=== PATIENT | male | born 1965 | race Caucasian/White ===

== ENCOUNTER 2018-01-31 02:13 | Emergency (ER) | payer OTHER ==
[~2018-01-31] VITALS: Ht 182.9 cm; Wt 79.4 kg
[2018-01-31 02:40] LABS: ABSOLUTE BASOPHILS 0.1 thou/uL (0.0-0.2); ABSOLUTE EOSINOPHILS 0.1 thou/uL (0.0-0.7); ABSOLUTE LYMPHOCYTES 2.4 thou/uL (0.8-5.3); ABSOLUTE MONOCYTES 1.5 thou/uL (0.0-1.2); ABSOLUTE NEUTROPHILS 5.3 thou/uL (1.6-8.1); BASOPHILS 0.7 %; EOSINOPHILS 1.4 %; HEMATOCRIT 50.3 % (42.0-52.0); LYMPHOCYTES 25.5 %; MCH 30.6 pg (26.0-34.0); MCHC 33.8 g/dL (28.0-37.0); MCV 90.5 fL (80.0-100.0); MPV 8.8 fl. (7.2-11.1); NUCLEATED RBCS 0 /100WBC; PLATELET COUNT* 313 thou/uL (150-400); POLYS 56.4 %; RBC 5.55 mil/uL (4.50-6.00); RDW-CV 13.4 % (10.5-14.5); WBC 9.4 thou/uL (4.0-11.0)
[2018-01-31 02:53] LABS: ANION GAP 7 mmol/L (7-16); BUN 20 mg/dL (7-18); CALCIUM 8.9 mg/dL (8.5-10.1); CHLORIDE 103 mmol/L (98-107); CO2 30 mmol/L (21-32); CREATININE 1.6 mg/dL (0.6-1.3); GLUCOSE 143 mg/dL (70-99); SODIUM 140 mmol/L (136-145)
[2018-01-31 03:00] LABS: ALKALINE PHOSPHATASE 98 U/L (46-116); LIPASE 128 U/L (73-393); SGOT 23 U/L (15-37); SGPT 43 U/L (30-65); TOTAL BILIRUBIN 0.5 mg/dL (<0.1-1.0); TOTAL PROTEIN 7.7 g/dL (6.4-8.2); TROPONIN-I LEVEL <0.06 ng/mL (<0.06)
[2018-01-31] MEDS ORDERED: ZOFRAN ODT4 MG PO (04:24)
[2018-01-31] MEDS ORDERED: NORCO 5-325 TA1 EACH PO (04:24)
[2018-01-31] MEDS ORDERED: FLOMAX0.4 MG PO (04:24)
[2018-01-31] MEDS ORDERED: IBUPROFEN 800800 M1 PO (04:24)
[2018-01-31 04:48] LABS: URINE BILIRUBIN NEGATIVE (Negative); URINE BLOOD 3+ (Negative); URINE CLARITY CLEAR; URINE COLOR YELLOW; URINE GLUCOSE-RANDOM NEGATIVE (Negative); URINE KETONES NEGATIVE (Negative); URINE LEUKOCYTES-REFLEX NEGATIVE (Negative); URINE NITRITE-REFLEX NEGATIVE (Negative); URINE PROTEIN NEGATIVE (Negative); URINE UROBILINOGEN 0.2 E.U./dl (0.2-1.0)
[2018-01-31 04:54] LABS: BACTERIA-REFLEX 1-9 Few /HPF (None Seen); CASTS None Seen /LPF (None Seen); CRYSTALS None Seen /LPF (None Seen); SQUAMOUS NONE SEEN /LPF (0-3); URINE RBC >20 Many /HPF (0-2); URINE WBC-REFLEX 0-5 Rare /HPF (0-5)
[2018-01-31 05:21] VITALS: BP 107/64
--- NOTE | 2018-01-31 17:54 | EKG ---
[place] [address] ELECTROCARDIOGRAM REPORT Name: KEVIN JEFFRIES Room: [facility]#: [id number] Admission: 01/31/18 Attend Phys: Discharge: 01/31/18 Date of : 67 Report #: [id number] THIS REPORT FOR: //name// [facility] ED Test Date: 2018-01-31 Test Time: 02:45:42 Pat Name: KEVIN JEFFRIES Department: Room: Gender: M Feltmaker: NATA : 1965 Requested By: Abdirizak Boogie Order Number: [id number] MD: Dash Bear Measurements Intervals Heron Rate: 69 P: -15 CT: 134 QRS: 83 QRSD: 100 T: 33 QT: 411 QTc: 441 Interpretive Statements Sinus rhythm Minimal ST elevation, inferior leads No previous ECG available for comparison Electronically Signed On 01-31-2018 17:54:35 CDT by Dash Bear [email or web address] <ELECTRONICALLY SIGNED> By: Dash Bear MD, [facility] 01/31/18 [id number] [id number] Dash Bear MD, [facility] /EPI
== END 2018-01-31 05:21 | disposition home or self-care (01) ==
LOC: M.ERS 02:13
PROVIDERS: Emergency Medicine Emergency Medical Services
DX: N20.0 Calculus of kidney (principal)